=== PATIENT | female | born 1955 | race Caucasian/White ===

== ENCOUNTER → 2017-04-22 | Outpatient (CLI) | payer MEDICAID | LOC: FIMAGING 13:40 | PROVIDERS: ATTEND Family Medicine | DX: M70.61 Trochanteric bursitis, right hip (principal); M70.62 Trochanteric bursitis, left hip ==

== ENCOUNTER 2017-06-12 08:48 | Day surgery (SDC) | payer MEDICAID ==
--- NOTE | 2017-06-09 14:16 | PDGENHP ---
History and Physical - Chief Complaint Left Hip Pain - History of Present Illness 1. 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 Left GT bursitis/ Gluteus medius tendinopathy HISTORY OF PRESENT ILLNESS: Bennieis a 61 y.o.~~~active female~who I have had the pleasure to consult on today.~I have enjoyed meeting her. She~lives in [place]. ~Bennieis disabled since 1990 due to fibromyalgia. ~She~is single; she~has 2~children. ~Bennie enjoys walking and crafting. Julien's left~hip pain started in February,~2016~with no~recalled trauma or injury , and with some~previous complaints.~Benniedoes not have~a known history of hip dysplasia. Presentation today is of~anterior, lateral left~hip pain. ~The hip does~wake her ~at night and does not~click and catch on her. Sitting can be uncomfortable~for her. Benniedoes~report suffering from lower back pain episodes. Benniehas~participated in physical therapy and has~tried other conservative measures including massage therapy. She~has not~received sufficient symptomatic improvement. Benniehas not~utilized medication for pain management, including NSAID. Bennieis having lateral sided right hip pain for many years and has had steroid injection for the GT bursitis. Bennieunderstands that she~has a hip and pelvis problem which should be researched and wishes to get a better understanding of her~hip status, followed by an establishment of a treatment strategy, hoping sheAnilwould be able to get back to her~well being active life. History: Past medical history: ~ Fibromyalgia, depression. kidney stones and hard of hearing. Relevant familial history: None which is relevant Past surgical history: No. Surgery Anesthesia Year Outcome 1 Hystrectomy [place] 1979 Good 2 Kidney stone removal x 5 [place] [id number] 3 [place] [id number] Benniedenies problematic issues with general anesthesia in the past. I have reviewed, verified and agree with the past medical, surgical, family and social history. Current Medications:~has a current medication list which includes the following prescription(s): aripiprazole, ciclopirox, cyanocobalamin, cyanocobalamin, gabapentin, hydrocortisone, levothyroxine, vyvanse, senna, sertraline, tizanidine, and trazodone. ALLERGIES:~is allergic to amantadine hcl; iodine; aspirin; diflunisal; and ketorolac. Objective: Physical Examination: Bennieis 5~feet 5~inches tall and weighs~135~Lbs. Bennieis AAO x3; she~is well -nourished, in NAD. Skin is warm and dry. ~Breathing is non-labored. ~CV with RRR by pulse. Abdomen is soft, NTND. Currently, she~walks with a abnormal antalgic~gait. Trendelenburg~and proprioception were not tested due to balance issues. ~She~presents~with mild~signs of joint laxity.~Beightons Score: 4 ~ Lower spine examination is negative~for sciatic or femoral nerve irritation with negative~SLR &~femoral stretch tests. Range of motion of the spine is normal~for flexion, extension, and rotations, with no~associated pain. Strength, Sensation and pulses are normal - bilaterally Ankles and knees exams are normal~and no~mal-alignment is evident. Surgical scars on the ankles. She~has~no leg length discrepancy. Thigh circumference is asymmetric~with intermediate~muscle atrophy~on left~side. Hip ROM (degrees): FL ER At 90~hip FL IR At 90~hip FL AB AD EX IR Neutral hip ER Neutral hip R 110 45 30 45 5 5 40 35 L 110 40 30 40 5 5 40 35 Specific hip and pelvis tests: Quadrant ABEL Roll Add. Longus R Negative Negative Negative Negative L +++ (Posterior and lateral) +++ (Posterior and lateral) Negative Negative Glut. Med ITB R Negative 5/5 strength Negative 5/5 strength L +++ 4+/5 strength +++ 5/5 strength Squeeze test measured normal Bony Symphysis pubis is pain free~to touch while concentric activity of the rectus abdominis, does not~produce pain at its insertion. Ilio Psos specific tests are negative for pain during cycling for both hips~and remarkable for no snap. Lateral/posterior~capsule tenderness on the left. Greater trochanteric burse is painful~on both hips(L>>R) Piriformis tests: FAIR is negative, with no~local signs of neuritis related to sciatic nerve. SIJs examination is produces pain on left side~with normal~ABEL in relation and local tenderness. Hamstrings tests are negative~functional contraction and negative~tendinopathy both hips. Imaging: Radiology studies which I~have personally reviewed, analyzed and measured are below: XR: AP of the hip and pelvis: Performed in a satisfacory~technique Coccyx to pubic symphysis distance 1.5~cm. [place]~Lines are preserved. Minimal~Pathological signs are seen in the Symphysis Pubis. Minimal~Pathological signs are seen at the Ischial~tuberosity. ~ Specific measurements show: Sclerosis Sup. Lat. OA Cysts Joint Space-WBZ Joint Space-Medial R + + Negative 5.5~mm 4.5~mm L + + Negative 4.9~mm 3.8~mm X Table lateral: Anterior cam lesion is seen~on the left hip. Left MRI shows: Avascular necrosis of the left~femoral head (Grade I), intact cartilage, GT bursitis and gluteus medius tendinopathy. Impression and plan:~ Bennieis a 61 y.o.~active female~suffering from symptomatic left~hip pain due to Avascular Necrosis of Femoral Head and GT bursitis/ Gluteus medius tendinopathy causing significant disability to her~and altering~her~sport and life activities.~Her pain possibly come from GT bursitis alone or she could have a intra articular source from AVN or both. Physical examination, imaging, and her~story correspond with the diagnosis mentioned above. In order to differentiate between the various possible sources of pain Bennie opted to move forward with an intra articular injection today in clinic. After verbal consent was obtained and Bennievoiced understanding of risks of infection, misplaced injection, fat or skin atrophy or injection into unintended structures, skin was prepped and draped in routine sterile fashion. With sterile technique, an injection of 2cc of Kenalog 40 and 5cc of 1% lidocaine+marcaine~was injected into Julien's left GT~without complication. The procedure was well tolerated. Bennienoted improved symptoms with activity immediately after injection and the injection took 80% of the pain away in the GT area. Osteonecrosis of the hip develops when the blood supply to the femoral head is disrupted. Without adequate nourishment, the bone in the head of the femur dies and gradually collapses. As a result, the articular cartilage covering the hip bones also collapses, leading to disabling arthritis. We explained that a hip preservation procedure (Core decompression) might serve as a bridging procedure to try and buy as much time as possible, keeping his [place] joint before joint replacement would be unavoidable. With that in mind, the outlined treatment options are: (1) To wait for THR utilizing pain medication, intra articular injections and lifestyle modification (to avoid or reduce symptoms); (2) THR now as an end-point procedure understanding the life-modifications associated with this procedure regarding activity level; or (3) Hip preservation surgery, specifically core decompression of the femoral head. She has grade I AVN and we are expecting good outcome from a~core decompression procedure. Additionally, the core decompression surgerydoesnot eliminate the possibility for future THR. If the hip preservation techniques fail to yield the expected results, THR can be done promptly. The injection should help her with GT bursitis and she may need core decompression if she continue to hurt or prophylactically to prevent further progression of AVN. Benniewill review the info presented. Bennieis going to think about core decompression~and get back to us. Bennieis happy with this plan. I wish~Bennieall the best, ~~ Radha Auguste MD History Information - Allergies/Home Medication List Allergies/Adverse Reactions: diflunisal [From Dolobid] Allergy (Unknown, Verified 05/31/17 12:02) Rash Iodinated Contrast- Oral and IV Dye [IV Dye, Iodine Containing] Allergy (Unknown , Verified 05/31/17 12:02) Other-Enter Comments aspirin [Aspirin] Allergy (Verified 05/31/17 12:02) Other-Enter Comments carbamazepine [From Tegretol] Allergy (Verified 05/31/17 12:02) Other-Enter Comments simatril Allergy (Uncoded 06/20/16 16:03) Other-Enter Comments Home Medications: Levothyroxine [Synthroid 100 mcg (RX)] 06/23/12 [Last Taken 06/23/16 04:15] Sertraline HCl [Zoloft 100mg (RX)] 06/23/12 [Last Taken 06/23/16 04:15] TIZANIDINE HCL [Zanaflex] 06/23/12 [Last Taken 06/22/16 18:45] Abilify 06/15/16 [Last Taken 06/23/16 04:15] VYVANSE 06/15/16 [Last Taken 06/22/16 18:45] traZODone 06/15/16 [Last Taken 06/22/16 18:45] Herbals/Supplements -Info Only 06/20/16 [Last Taken 06/22/16 04:15] Neurontin 300 MG (*) 06/20/16 [Last Taken 06/23/16 04:15] Valium 05/31/17 [Last Taken Unknown] I have personally reviewed and updated: medical history - Social History Smoking Status: Never smoked
[~2017-06-12 08:48] MED LIST: ACETAMINOPHEN 500 MG TAB PO ONE; PREGABALIN 150 MG CAP PO ONE; ceFAZolin 2 GM/DEXTROSE 100 ML IV ONE
[2017-06-12] MEDS ORDERED: PREGABALIN 150 MG CAP ONE (08:56)
[2017-06-12] MEDS ORDERED: LIDOCAINE 1% 2 ML INJ ONE (08:56)
[2017-06-12] MEDS ORDERED: ACETAMINOPHEN 500 MG TAB ONE (08:56)
[2017-06-12] MEDS ORDERED: CEFAZOLIN 2 GM/DEXTROSE/100 ML BAG IV ONE (08:57)
[2017-06-12] MEDS ORDERED: BUPIVACAINE/EPI 0.25% 30 ML SDV ONE (09:05)
--- NOTE | 2017-06-12 09:12 | PDANEPAE ---
ANE History of Present Illness AVN L Hip ANE Past Medical History - Cardiovascular History Hx Hypertension: No Hx Arrhythmias: No Hx Chest Pain: No Hx Coronary Artery / Peripheral Vascular Disease: No Hx CHF / Valvular Disease: No Hx Palpitations: No Cardiovascular History Comment: MILD [id number] - Pulmonary History Hx COPD: No Hx Asthma/Reactive Airway Disease: No Hx Recent Upper Respiratory Infection: No Hx Oxygen in Use at Home: No Hx Sleep Apnea: No Sleep Apnea Screening Result - Last Documented: Negative - Neurologic History Hx Cerebrovascular Accident: No Hx Seizures: No Hx Dementia: No - Endocrine History Hx Diabetes: No Hypothyroid: Yes Endocrine History Comment: hypothyroidism on Synthroid - Renal History Hx Renal Disorders: Yes Renal History Comment: hx of bladder infxn. hx of kidney stones. previous surgery 06/24/16 with Mumtaz - Liver History Hx Hepatic Disorders: No - Neurological & Psychiatric Hx Hx Neurological and Psychiatric Disorders: Yes Neurological / Psychiatric History Comment: anxiety - Cancer History Hx Cancer: No - Congenital Disorder History Hx Congenital Disorders: No - GI History GERD: mild Hx Gastrointestinal Disorders: Yes Gastrointestinal History Comment: gerd - Other Health History Other Health History: HEARING LOSS- wears hearing aides bilaterally. wears glasses. FIBROMYALGIA. OA KNEE. PARTIAL PLATES - Chronic Pain History Chronic Pain: Yes (FIBROMYALGIA) - Surgical History Prior Surgeries: 06/24/16 left ureteroscopy with stent placement with Mumtaz. R ANKLE ORIF 2011. L ANKLE ORIF 2010. URETEROSCOPY. HYSTERECTOMY. APPENDECTOMY ANE Review of Systems - Exercise capacity METS (RN): 4 METS ANE Patient History - Allergies Allergies/Adverse Reactions: diflunisal [From Dolobid] Allergy (Unknown, Verified 05/31/17 12:02) Rash Iodinated Contrast- Oral and IV Dye [IV Dye, Iodine Containing] Allergy (Unknown , Verified 05/31/17 12:02) Other-Enter Comments aspirin [Aspirin] Allergy (Verified 05/31/17 12:02) Other-Enter Comments carbamazepine [From Tegretol] Allergy (Verified 05/31/17 12:02) Other-Enter Comments simatril Allergy (Uncoded 06/20/16 16:03) Other-Enter Comments - Home Medications Home Medications: Levothyroxine [Synthroid 100 mcg (RX)] 06/23/12 [Last Taken 06/12/17 07:00] Sertraline HCl [Zoloft 100mg (RX)] 06/23/12 [Last Taken 06/12/17 07:00] TIZANIDINE HCL [Zanaflex] 06/23/12 [Last Taken 06/11/17 21:00] Abilify 06/15/16 [Last Taken 06/12/17 07:00] VYVANSE 06/15/16 [Last Taken 06/11/17] traZODone 06/15/16 [Last Taken 06/11/17 21:00] Herbals/Supplements -Info Only 06/20/16 [Last Taken 1 Week Ago] Neurontin 300 MG (*) 06/20/16 [Last Taken 06/12/17 07:00] Valium 05/31/17 [Last Taken 1 Week Ago] Abilify 06/12/17 [Last Taken 06/12/17 07:00] - Smoking Hx Smoking Status: Never smoked - Alcohol Use Alcohol Use: Rarely - Family Anes Hx Family Hx Anesthesia Complications: NONE ANE Labs/Vital Signs - Vital Signs Height: 165.1 cm Weight: 62.142 kg ANE Physical Exam - Airway Neck exam: FROM Mouth exam: poor dentition (partials) - Pulmonary Pulmonary: no respiratory distress - Cardiovascular Cardiovascular: regular rate and rhythym - ASA Status ASA Status: II ANE Anesthesia Plan Anesthesia Plan: GA w LMA (r/b/a explained, pt has no questions)
[2017-06-12] MEDS ORDERED: LIDOCAINE 1% 2 ML INJ ID PRN (09:15)
[2017-06-12] MEDS ORDERED: LR 1,000 ML IV ONE (09:15)
[2017-06-12] MEDS ORDERED: PROPOFOL/EMULSION 500 MG/50 ML BOTTLE IV ONE (09:47)
[2017-06-12] MEDS ORDERED: LIDOCAINE 2% JELLY 5 ML TUBE ONE (09:47)
[2017-06-12] MEDS ORDERED: DEXAMETHASONE 4 MG/ML VIAL ONE (09:47)
[2017-06-12] MEDS ORDERED: fentaNYL 100 MCG/2 ML INJ ONE ×2 (09:47→11:46)
[2017-06-12] MEDS ORDERED: ONDANSETRON 4 MG/2 ML VIAL ONE (09:47)
[2017-06-12] MEDS ORDERED: LIDOCAINE 2% 100 MG/5 ML SYR ONE (09:47)
[2017-06-12] MEDS ORDERED: MIDAZOLAM 2 MG/2 ML VIAL ONE (09:48)
[2017-06-12] MEDS ORDERED: HYDROmorphONE/DILAUDID 1 MG/ML SYR IVP PRN ×4 (11:18→15:32)
[2017-06-12] MEDS ORDERED: OXYCODONE/APAP 5/325 TAB PO PRN ×2 (11:18→15:32)
[2017-06-12] MEDS ORDERED: LABETALOL HCL 50 MG/10 ML SYR IVP PRN ×2 (11:18→15:32)
[2017-06-12] MEDS ORDERED: ALBUTEROL 3 ML DEYVIAL IH PRN (11:18)
[2017-06-12] MEDS ORDERED: MEPERIDINE 25 MG/ML SYR IVP PRN ×2 (11:18→15:32)
[2017-06-12] MEDS ORDERED: DEXAMETHASONE 4 MG/ML VIAL IVP PRN ×2 (11:18→15:32)
[2017-06-12] MEDS ORDERED: METOCLOPRAMIDE 10 MG/2 ML VIAL IVP PRN ×2 (11:18→15:32)
[2017-06-12] MEDS ORDERED: ONDANSETRON 4 MG/2 ML VIAL IVP PRN ×2 (11:18→15:32)
[2017-06-12] MEDS ORDERED: fentaNYL 100 MCG/2 ML INJ IVP PRN ×3 (11:18→15:32)
[2017-06-12] MEDS ORDERED: LR 500 ML IV PRN ×2 (11:18→15:32)
[2017-06-12] MEDS ORDERED: NALOXONE HCL 0.4 MG/ML INJ IVP PRN ×2 (11:18→15:32)
[2017-06-12] MEDS ORDERED: HYDROCODONE/APAP 5/325 TAB PO PRN ×2 (11:18→15:32)
[2017-06-12] MEDS ORDERED: ACETAMINOPHEN 500 MG TAB PO PRN ×2 (11:18→15:32)
[2017-06-12] MEDS ORDERED: PROMETHAZINE HCL 25 MG/ML INJ IVP PRN ×2 (11:18→15:32)
[2017-06-12] MEDS: fentaNYL 100 MCG/2 ML INJ IVP PRN ×2 (11:48→12:00)
[2017-06-12] MEDS ORDERED: OXYCODONE/APAP 5/325 TAB ONE (12:20)
[2017-06-12 14:27] VITALS: BP 106/64; O2SAT 99
--- NOTE | 2017-06-12 14:42 | POSTANESTH ---
Post Anesthetic Evaluation Cardiovascular Status: Normal, Stable Respiratory Status: Normal, Stable Level of Consciousness/Mental Status: Can Participate in Eval Pain Control: Adequate, Prn Tx Ordered Nausea/Vomiting Control: Adequate, Prn Tx Ordered Complications Possibly Related to Anesthesia: None Noted
[2017-06-12 15:03] VITALS: RESP 16; TEMP 97.9
[2017-06-12 15:07] VITALS: PULSE 70
== END 2017-06-12 14:50 | disposition home or self-care (01) ==
LOC: FSGY 08:48
PROVIDERS: ATTEND Orthopaedic Surgery Sports Medicine
DX: M87.852 Other osteonecrosis, left femur (principal); M76.02 Gluteal tendinitis, left hip; M79.7 Fibromyalgia; E03.9 Hypothyroidism, unspecified; Z91.041 Radiographic dye allergy status
CPT/HCPCS: J0690; J1100; J2001; J2250; J2405; J2704; J3010

== ENCOUNTER → 2017-07-31 | Outpatient (CLI) | payer MEDICAID | LOC: FIMAGING 08:58 | PROVIDERS: ATTEND Family Medicine | DX: Z12.31 Encounter for screening mammogram for malignant neoplasm of breast (principal); Z80.3 Family history of malignant neoplasm of breast | CPT/HCPCS: G0202 ==

== ENCOUNTER → 2018-03-03 | Outpatient (CLI) | payer MEDICAID | LOC: FIMAGING 09:59 | PROVIDERS: ATTEND Orthopaedic Surgery Sports Medicine | DX: M76.02 Gluteal tendinitis, left hip (principal); Z87.39 Personal history of other diseases of the musculoskeletal system and connective tissue; Z98.890 Other specified postprocedural states ==

== ENCOUNTER → 2018-09-27 | Outpatient (CLI) | payer MEDICAID | LOC: FIMAGING 10:03 | PROVIDERS: ATTEND Family Medicine | DX: Z12.31 Encounter for screening mammogram for malignant neoplasm of breast (principal); Z80.3 Family history of malignant neoplasm of breast ==

== ENCOUNTER → 2019-03-26 | Outpatient (CLI) | payer MEDICAID | LOC: FCPNEURO 21:00 | PROVIDERS: ATTEND Internal Medicine Sleep Medicine | DX: G47.37 Central sleep apnea in conditions classified elsewhere (principal); G47.39 Other sleep apnea ==